=== PATIENT | male | born 1975 ===

== ENCOUNTER → 2017-06-03 | Outpatient (CLI) | payer OTHER | LOC: MHCPAIN 09:34 | DX: G89.29 Other chronic pain (principal); G57.11 Meralgia paresthetica, right lower limb; M79.1 Myalgia; Z87.891 Personal history of nicotine dependence | CPT/HCPCS: G0463 ==

== ENCOUNTER → 2017-06-22 | Outpatient (CLI) | payer OTHER | LOC: MHCPAIN 14:00 | DX: G57.11 Meralgia paresthetica, right lower limb (principal) | CPT/HCPCS: J1040 ==

== ENCOUNTER → 2017-07-21 | Outpatient (CLI) | payer OTHER | LOC: MHCPAIN 15:41 | DX: G89.29 Other chronic pain (principal); M79.2 Neuralgia and neuritis, unspecified; M79.1 Myalgia; Z87.891 Personal history of nicotine dependence | CPT/HCPCS: G0463 ==